=== PATIENT | male | born 1970 | race Caucasian/White ===

== ENCOUNTER 2017-04-18 12:14 | Emergency (ER) | payer BC ==
[2017-04-18] MEDS ORDERED: Meclizine 25 MG Tab PO ONE ×2 (12:15→12:34)
--- NOTE | 2017-04-18 13:35 | EDM.PDOC ---
ED HPI GENERAL MEDICAL PROBLEM - General Chief Complaint: General Stated Complaint: DIZZY Time Seen by Provider: 04/18/17 12:25 Source of Information: Reports: Patient History Limitations: Reports: No Limitations - History of Present Illness INITIAL COMMENTS - FREE TEXT/NARRATIVE: Patient has had some diarrhea and nasal congestion the last few days and at gn[facility] this am at 11;45 am he got up and the room started spinning, his vision blurred, he felt nauseated and almost fainted. He still had some dizzyness by the time he got to the ED. He does have chronic neck and back pain the last few days but no other pain. Onset: Today Onset Date: 04/18/17 Onset Time: 11:45 Duration: Hour(s): (1), Getting Worse Location: Reports: Head, Generalized Quality: Reports: Other (He has had motion sickness before.) Severity: Moderate Improves with: Reports: None Worsens with: Reports: None Context: Reports: Other (History of motion sickness.) Associated Symptoms: Reports: Loss of Appetite, Nausea/Vomiting Neck Pain Score (Numeric/FACES): 6 - Related Data Allergies Allergy/AdvReac Type Severity Reaction Status Date / Time No Known Allergies Allergy Verified 04/18/17 12:34 Home Meds: Home Meds NK [No Known Home Meds] 04/18/17 [History] Past Medical History - Past Health History Medical/Surgical History: Denies Medical/Surgical History Cardiovascular History: Reports: Hypertension Social & Family History - Family History Family Medical History: Noncontributory - Tobacco Use Smoking Status *Q: Never Smoker Second Hand Smoke Exposure: No - Caffeine Use Caffeine Use: Reports: None - Recreational Drug Use Recreational Drug Use: No ED ROS GENERAL - Review of Systems Review Of Systems: See Below Constitutional: Reports: Weakness, Decreased Appetite HEENT: Reports: Vertigo, Vision Change Respiratory: Reports: No Symptoms Cardiovascular: Reports: No Symptoms Endocrine: Reports: No Symptoms GI/Abdominal: Reports: Nausea : Reports: No Symptoms Musculoskeletal: Reports: No Symptoms Skin: Reports: No Symptoms Neurological: Reports: Dizziness, Difficulty Walking, Weakness Psychiatric: Reports: No Symptoms Hematologic/Lymphatic: Reports: No Symptoms Immunologic: Reports: No Symptoms ED EXAM, GENERAL - Physical Exam Exam: See Below Exam Limited By: No Limitations General Appearance: Alert, WD/WN, No Apparent Distress Eye Exam: Bilateral Eye: EOMI, Normal Fundi, Normal Inspection, Nystagmus Ears: Normal External Exam, Normal Canal, Hearing Grossly Normal, Normal TMs Ear Exam: Bilateral Ear: Auricle Normal, Canal Normal, TM normal Nose: Normal Inspection, Normal Mucosa, No Blood Throat/Mouth: Normal Inspection, Normal Lips, Normal Teeth, Normal Gums, Normal Oropharynx, Normal Voice, No Airway Compromise Head: Atraumatic Neck: Normal Inspection, Supple, Non-Tender, Full Range of Motion Respiratory/Chest: No Respiratory Distress, Lungs Clear, Normal Breath Sounds, No Accessory Muscle Use, Chest Non-Tender Cardiovascular: Normal Peripheral Pulses, Regular Rate, Rhythm, No Edema, No Gallop, No JVD, No Murmur, No Rub GI/Abdominal: Normal Bowel Sounds, Soft, Non-Tender, No Organomegaly, No Distention, No Abnormal Bruit, No Mass Extremities: Normal Inspection, Normal Range of Motion, Non-Tender, Normal Capillary Refill, No Pedal Edema Neurological: Alert, Oriented, CN II-XII Intact, Normal Cognition, Normal Gait, Normal Reflexes, No Motor/Sensory Deficits Psychiatric: Normal Affect, Normal Mood Skin Exam: Warm, Dry, Intact, Normal Color, No Rash Lymphatic: No Adenopathy EKG INTERPRETATION EKG Date: 04/18/17 Rhythm: NSR [place]: Normal P-Wave: Present QRS: Normal ST-T: Normal QT: Normal Comparison: NA - No Prior EKG Course - Vital Signs Text/Narrative:: Uneventful ED course. His EKG and labs were all normal and he felt back to normal after taking 25 mg of Meclizine. He will take Meclizine 25 mg po tid prn vertigo and follow up with a PCP in the next few weeks. Last Recorded V/S: Last Vital Signs Temp 36.6 C 04/18/17 12:18 Pulse 86 04/18/17 12:18 Resp 16 04/18/17 12:18 BP 158/86 H 04/18/17 12:18 Pulse Ox 93 L 04/18/17 12:18 - Orders/Labs/Meds Orders: Active Orders 24 hr Category Date Time Status EKG 12 Lead [EK] Routine Ther 04/18/17 12:21 Ordered Labs: Laboratory Tests 04/18/17 04/18/17 04/18/17 Range/Units 12:19 12:30 12:30 WBC 7.3 (4.5-12.0) X10-3/uL RBC 5.38 (4.30-5.75) x10(6)uL Hgb 14.1 (11.5-15.5) g/dL Hct 43.3 (30.0-51.3) % MCV 80.6 (80-96) fL MCH 26.2 L (27.7-33.6) pg MCHC 32.5 (32.2-35.4) g/dL RDW 13.2 (11.5-15.5) % Plt Count 233 (125-369) X10(3)uL MPV 7.7 (7.4-10.4) fL Neut % (Auto) 51.9 (46-82) % Lymph % (Auto) 37.4 H (13-37) % [place] % (Auto) 8.0 (4-12) % Eos % (Auto) 2 (1.0-5.0) % Baso % (Auto) 1 (0-2) % Neut # (Auto) 3.8 (1.6-8.3) # Lymph # (Auto) 2.7 (0.6-5.0) # Jefferson # (Auto) 0.6 (0.0-1.3) # Eos # (Auto) 0.1 (0.0-0.8) # Baso # (Auto) 0.1 (0.0-0.2) # Sodium 141 (135-145) mmol/L Potassium 4.0 (3.5-5.3) mmol/L Chloride 105 (100-110) mmol/L Carbon Dioxide 26 (21-32) mmol/L BUN 15 (7-18) mg/dL Creatinine 0.9 (0.70-1.30) mg/dL Est Cr Clr Drug Dosing 128.59 mL/min Estimated GFR (MDRD) > 60 (>60) BUN/Creatinine Ratio 16.7 (9-20) Glucose 108 (80-116) mg/dL POC Glucose 91 (80-116) mg/dL Calcium 9.1 (8.6-10.2) mg/dL Troponin I (<0.017-0.056) ng/mL 04/18/17 Range/Units 12:30 WBC (4.5-12.0) X10-3/uL RBC (4.30-5.75) x10(6)uL Hgb (11.5-15.5) g/dL Hct (30.0-51.3) % MCV (80-96) fL MCH (27.7-33.6) pg MCHC (32.2-35.4) g/dL RDW (11.5-15.5) % Plt Count (125-369) X10(3)uL MPV (7.4-10.4) fL Neut % (Auto) (46-82) % Lymph % (Auto) (13-37) % Jefferson % (Auto) (4-12) % Eos % (Auto) (1.0-5.0) % Baso % (Auto) (0-2) % Neut # (Auto) (1.6-8.3) # Lymph # (Auto) (0.6-5.0) # Jefferson # (Auto) (0.0-1.3) # Eos # (Auto) (0.0-0.8) # Baso # (Auto) (0.0-0.2) # Sodium (135-145) mmol/L Potassium (3.5-5.3) mmol/L Chloride (100-110) mmol/L Carbon Dioxide (21-32) mmol/L BUN (7-18) mg/dL Creatinine (0.70-1.30) mg/dL Est Cr Clr Drug Dosing mL/min Estimated GFR (MDRD) (>60) BUN/Creatinine Ratio (9-20) Glucose (80-116) mg/dL POC Glucose (80-116) mg/dL Calcium (8.6-10.2) mg/dL Troponin I < 0.017 L (<0.017-0.056) ng/mL Meds: Medications Discontinued Medications Generic Name Dose Route Start Last Admin Trade Name Freq PRN Reason Stop Dose Admin Meclizine HCl 25 mg 04/18/17 12:34 04/18/17 12:39 Antivert PO 04/18/17 12:35 25 mg ONETIME ONE Administration Departure - Departure Time of Disposition: 13:41 Disposition: Home, Self-Care 01 Condition: Good Clinical Impression: Labyrinthitis of both ears - Discharge Information Referrals: PCP,None [Primary Care Provider] - - My Orders Last 24 Hours: My Active Orders 04/18/17 12:21 EKG 12 Lead [EK] Routine - Assessment/Plan Last 24 Hours: My Active Orders 04/18/17 12:21 EKG 12 Lead [EK] Routine
== END 2017-04-18 13:46 | disposition home or self-care (01) ==
LOC: FB.ED 12:14
DX: H83.03 Labyrinthitis, bilateral (principal)
CPT/HCPCS: 36415; 80048; 82962; 84484; 85025; 93005; 99283; A9270